=== PATIENT | female | born 1995 | race Two or more races ===

== ENCOUNTER 2025-04-09 17:19 | Inpatient (IN) ==
--- NOTE | 2025-04-09 18:55 | Emergency Department Note ---
Impression & Plan , Pyelonephritis ED Provider Note ED Provider Note NAME: FNU SUMI AGE:30 SEX: Female : 1995 ARRIVES VIA: private vehicle INFORMANT: Patient ED PROVIDER(s): Francy العلي DO CHIEF COMPLAINT: Flulike symptoms, HPI: This is a 30-year-old female who presents to the Emergency Department due to concern for recently flulike symptoms over the last 2 days. This is the patient's first . She is approximately 22 weeks gestation and has been following with Dr. Alejandro. She states she does have a history of high blood pressure and her nifedipine was recently increased. She denies any known sick contact. She began with a headache and body aches 2 days ago and intermittent fever. She began taking Tylenol and did contact her CHILI MAKER. Fevers do respond to Tylenol however they do recur. Office told her that if she was still having a fever that reached 101 degrees to go to the ER for further evaluation. She denies any recent vomiting or diarrhea but states she has been nauseated. No vaginal bleeding. No recent travel. PAST MEDICAL HISTORY:See Below PAST SURGICAL HISTORY:See Below FAMILY HISTORY:See Below SOCIAL HISTORY:See Below HOME MEDICATIONS:See Below ALLERGIES:See Below VITALS:See Below PHYSICAL EXAMINATION: GENERAL: alert, well appearing, well nourished, no distress, non-toxic EYE EXAM: normal conjunctiva, PERRL and EOM's grossly intact EARS: TM's clear b/l without erythema or effusion OROPHARYNX: no exudate, no erythema, lips, buccal mucosa, and tongue normal and mucous membranes are moist NECK: supple, no nuchal rigidity, no adenopathy, non-tender LUNGS: Clear to auscultation. Normal chest wall mechanics, no w/r/r HEART: no murmurs, S1 normal and S2 normal ABDOMEN: abdomen soft, non-tender, normo-active bowel sounds, no rebound or guarding. Gravid uterus palpable just above the umbilicus. SKIN: no rashes, petechiae, orbruising UPPER EXTREMITIES: upper extremities are grossly normal. FROM, nml pulses b/l. LOWER EXTREMITIES: No pitting edema. FROM, nml pulses b/l. NEURO EXAM: Normal sensorium, cranial nerves II-XII grossly intact, normal speech, no facial droop,nogross weakness of arms, no gross weakness of legs. Gross sensation intact. No ataxia. Vital Signs: reviewed and remarkable Differential Diagnosis: Viral syndrome, dehydration, SOLEDAD, preeclampsia, UTI, electrolyte abnormality, medication ADR, pyelonephritis, ureterolithiasis, cholecystitis, colitis, as well as others were considered MEDICAL DECISION MAKING: This is a 30-year-old female who is 22 weeks in her first presents to the emergency department due to 2 days of bodyaches, fevers, headache, and increased nausea. Patient has been using Tylenol with intermittent success. She does feel she is likely dehydrated today additionally. Labs are drawn and sent, IV established, urine collected at bedside and sent for analysis, EKG performed and interpreted by me. Patient was started on IV fluids and given IV Tylenol. Nasal swab obtained and sent for viral respiratory panel. Her heart rate did begin to improve. Urine ultimately found to be the likely source of infection. Patient given IV Rocephin and sent for renal ultrasound. Case discussed with on-call FLUE DUST LABORER via [place] text. Patient updated on results at bedside. Patient noted to have significant leukocytosis however procalcitonin negative. No evidence for SOLEDAD. I then reviewed prior urine cultures after patient mentioned 2 prior urinary tract infections during this . Patient did grow out an E.coli ESBL. After discussion with FLUE DUST LABORER regarding disposition, case was discussed with the hospitalist team. They prefer addition of Zosyn for antibiotics while awaiting urine culture. Patient was persistently tachycardic despite 2 L of fluid and third liter being slowed to maintenance. Patient reported feeling improved with no further headache or bodyaches and no longer feeling fevered. She states her nausea was improved additionally and she was able to tolerate sips by mouth. I do not suspect occult ureterolithiasis despite the appearance of nephrolithiasis on ultrasound. Patient with no focal abdominal, flank, or back pain. Consultation(s): 2245: DIscussed with Dr. Head, director of knowledge management via tiger text. [id number]: DIscucssed with Dr. Vidales, Id hospitalist team, for additional evaluation and mgmt. ER Treatment Provided: See below Diagnostics Interpreted By Me: -ECG: Sinus tachycardia at 109, normal axis, normal intervals, no acute ST/T wave changes -Cardiac Monitoring: An order was placed for continuous cardiac monitoring. The monitor shows a rate of 111 with sinus tachycardia rhythm. -Laboratory studies: As stated above and show below. -Imaging studies: US renal: nephrolithiasis noted, mild hydro Triage Nursing Note Reviewed Prior/Outside Records Reviewed Past Med/Surg History Problem List (Updated 04/10/25 @ 01:11 by Sinan Vidales MD) Hydronephrosis of right kidney UTI due to extended-spectrum beta lactamase (ESBL) producing Escherichia coli Pyelonephritis (Acute) (Acute) Hepatic steatosis Encounter for anatomic survey Hypothyroidism affecting Chronic hypertension affecting Early stage of Medical History Chicken pox Diarrhea Acid reflux Celiac disease Hypothyroid Pre-conception counseling Irregular menses Hypertension Desire for History of hypothyroidism Acid reflux History of kidney stones Borderline high cholesterol Borderline high blood pressure History of celiac disease (2019) Surgical History History of endoscopy History of colonoscopy Family History Denies family history of Ovarian cancer Breast cancer Colorectal cancer Social History Smoking Status: Never smoker Do You Dip or Chew Tobacco: No; Hx Alcohol Use: No Hx Substance Use: No Preferred Language: Uruguayan Communication Ability: Effective Respiratory Supervisor Required: No Beliefs That Will Affect Care: None marital status: marital status details: Jose Luis Rashid (38) Current Living Situation: Alone Current Living Situation Comment: apartment alone- in [place]. No pets. current occupational status: employed current occupation: Post-doc at [employer] Feels Safe at Home: Yes Assistive Devices: Glasses Allergies Allergies Allergy/AdvReac Type Severity Reaction Status Date / Time gluten Allergy Unknown celiac Verified 04/09/25 20:40 disease contact metal agent AdvReac Unknown "ARTIFICIAL Verified 04/10/25 00:04 JEWELRY" SPOTS ON SKIN Home Meds Home Medications Medication Instructions Recorded Confirmed aspirin 81 mg tablet,delayed 81 mg PO HS 04/09/25 04/09/25 release levothyroxine 75 mcg tablet 75 mcg PO DAILYBB 04/09/25 04/09/25 nifedipine 30 mg tablet,extended 60 mg PO HS 04/09/25 04/09/25 release 24 hr vit no.95-ferrous 1 tab PO HS 04/09/25 04/09/25 fumarate 28 mg-folic acid 800 mcg tablet () Previous Rx's Medication Instructions Recorded acetone (urine) test (Ketone Urine #50 ea 03/10/25 Test strips) blood sugar diagnostic (True #150 ea 03/10/25 Metrix Glucose Test Strip) blood-glucose meter (True Metrix #1 ea 03/10/25 Glucose Meter) lancets 28 gauge (TRUEplus Lancets) #150 ea 03/13/25 Results & Data (ED) Vital Signs Vital Signs - 24 hr 04/09/25 17:40 04/09/25 19:00 04/09/25 19:14 Temperature 37.9 C H Temperature Source Oral Pulse Rate 133 H 108 H Pulse Rate [Apical] 108 H Respiratory Rate 18 16 Respiratory Effort / Characteristics Non-Labored Respiratory Depth Normal Respiratory Pattern Regular Blood Pressure 153/92 H Blood Pressure [Right Arm] 132/87 Blood Pressure Mean 112 Blood Pressure Mean [Right Arm] 102 Pulse Oximetry 97 97 Oxygen Delivery Method Room Air Room Air Sepsis Recent Fever Within 48 Hours No Sepsis New/Unexplained Change in Mental Status N/A Sepsis Action Taken by Nursing No Action Required 04/09/25 19:30 04/09/25 20:00 04/09/25 21:00 Temperature 37 C Temperature Source Oral Pulse Rate Pulse Rate [Apical] 105 H 104 H 111 H Respiratory Rate 18 16 20 Respiratory Effort / Characteristics Respiratory Depth Respiratory Pattern Blood Pressure Blood Pressure [Right Arm] 143/85 H 125/83 115/83 Blood Pressure Mean Blood Pressure Mean [Right Arm] 104 97 93 Pulse Oximetry 97 95 98 Oxygen Delivery Method Room Air Room Air Room Air Sepsis Recent Fever Within 48 Hours Sepsis New/Unexplained Change in Mental Status Sepsis Action Taken by Nursing 04/09/25 23:18 04/10/25 02:01 Temperature Temperature Source Pulse Rate 107 H Pulse Rate [Apical] 113 H Respiratory Rate 18 Respiratory Effort / Characteristics Respiratory Depth Normal Respiratory Pattern Blood Pressure Blood Pressure [Right Arm] 129/87 Blood Pressure Mean Blood Pressure Mean [Right Arm] 101 Pulse Oximetry 96 Oxygen Delivery Method Room Air Sepsis Recent Fever Within 48 Hours Sepsis New/Unexplained Change in Mental Status Sepsis Action Taken by Nursing Laboratory Data 04/09/25 19:00 04/09/25 19:00 Lab Results 04/09/25 04/09/25 04/09/25 Range/Units 18:00 19:00 20:05 WBC 18.93 H (4.8-10.8) K/ul RBC 3.63 L (4.20-5.40) M/uL Hgb 10.6 L (12.0-16.0) g/dL Hct 31.2 L (37.0-47.0) % MCV 86.0 (80.0-100.0) fL MCH 29.2 (25.0-34.0) pg MCHC 34.0 (32.0-36.0) g/dL RDW Std Deviation 46.4 H (36.4-46.3) fL RDW Coeff of Guillermo 14.8 H (11.5-14.5) % Plt Count 272 (130-400) K/uL MPV 11.6 (9.4-12.4) fL Immature Gran % (Auto) 0.8 % Neut % (Auto) 76.3 % Lymph % (Auto) 14.4 % [place] % (Auto) 7.6 % Eos % (Auto) 0.6 % Baso % (Auto) 0.3 % Neut # (Auto) 14.44 H (1.40-6.50) K/uL Lymph # (Auto) 2.72 (1.20-3.40) K/uL [place] # (Auto) 1.44 H (0.11-0.59) K/uL Eos # (Auto) 0.12 (0.00-0.50) K/uL Baso # (Auto) 0.06 (0.00-0.20) K/uL Immature Gran # (Auto) 0.15 (0.01-0.20) K/uL PT 10.9 (9.0-12.0) Seconds INR 1.0 (0.9-1.1) Sodium 133 L (136-145) mmol/L Potassium 3.2 L (3.5-5.1) mmol/L Chloride 104 (98-107) mmol/L Carbon Dioxide 21 (21-32) mmol/L Anion Gap 8 (3-11) BUN 7 (6-23) mg/dl Creatinine 0.50 L (0.6-1.2) mg/dl Est Cr Clr Drug Dosing 132.0 ml/min eGFR 127.72 BUN/Creatinine Ratio 14.0 (10-20) Glucose 113 H (70-99(Fasting)) mg/dl Calcium 9.0 (8.6-10.3) mg/dl Total Bilirubin 0.2 (0.2-1.0) mg/dl AST 19 (13-39) U/L ALT 16 (7-52) U/L Alkaline Phosphatase 71 (34-104) U/L Total Protein 7.5 (6.0-8.3) gm/dl Albumin 3.3 L (3.4-5.0) gm/dl Globulin 4.2 H (2.5-4.0) gm/dl Albumin/Globulin Ratio 0.8 L (0.9-2) Procalcitonin 0.05 (0-0.5) ng/ml TSH 1.372 (0.300-4.500) uIu/ml Urine Color Yellow Urine Appearance Clear (Clear) Urine pH 7.5 (4.5-7.5) Ur Specific [place] 1.004 (1.000-1.030) Urine Protein Negative (Negative) Urine Glucose (UA) Negative (Negative) Urine Ketones Negative (Negative) Urine Blood 1+ H (Negative) Urine Nitrite Positive A (Negative) Urine Bilirubin Negative (Negative) Urine Urobilinogen Negative (Negative) Ur Leukocyte Esterase 2+ H (Negative) Urine WBC (Auto) 6-10 H (0-5) /hpf Urine RBC (Auto) 0-2 (0-2) /hpf U Hyaline Cast (Auto) 0-2 (0-2) /lpf U Epithel Cells (Auto) 0-2 (0-2) /hpf Urine Bacteria (Auto) 4+ H (None Seen) Urine Comment Adenovirus (PCR) Not Detected (NotDetected) B. pertussis DNA (PCR) Not Detected (NotDetected) B.parapertussis DNA PCR Not Detected (NotDetected) C. pneumoniae DNA (PCR) Not Detected (NotDetected) Coronavirus OC43 (PCR) Not Detected (NotDetected) Coronavirus HKU1 (PCR) Not Detected (NotDetected) Coronavirus 229E (PCR) Not Detected (NotDetected) SARS-CoV-2 (PCR) Not Detected (NotDetected) Coronavirus NL63 (PCR) Not Detected (NotDetected) Human Metapneumovir PCR Not Detected (NotDetected) Influenza Type A (PCR) Not Detected (NotDetected) Influenza Type B (PCR) Not Detected (NotDetected) M. pneumoniae (PCR) Not Detected (NotDetected) Parainfluenza 1 (PCR) Not Detected (NotDetected) Parainfluenza 2 (PCR) Not Detected (NotDetected) Parainfluenza 3 (PCR) Not Detected (NotDetected) Parainfluenza 4 (PCR) Not Detected (NotDetected) RSV (PCR) Not Detected (NotDetected) Entero/Rhino (PCR) Not Detected (NotDetected) Administered Medications Potassium Chloride/Sodium Chloride (Normal Saline W/20 Meq Kcl) 20 meq in 1,000 mls @ 100 mls/hr IV .Q10H ANGELICA Stop: 04/10/25 20:14 Last Admin: 04/10/25 01:20 Dose: 100 mls/hr Documented By: [email or web address] Discontinued Medications Sodium Chloride (Nss) 1,000 mls @ 999 mls/hr IV .Q1H1M ONE Stop: 04/09/25 19:43 Last Infusion: 04/09/25 19:55 Dose: Infused Documented By: zenobia Admin: 04/09/25 18:57 Dose: 999 mls/hr Documented By: zenobia Famotidine (Pepcid 20mg Iv Push) 20 mg in 5 mls @ 2.5 mls/min IV NOW STA Stop: 04/09/25 18:44 Last Admin: 04/09/25 18:57 Dose: 2.5 mls/min Documented By: zenobia Acetaminophen (Ofirmev) 1,000 mg in 100 mls @ 400 mls/hr IV NOW STA Stop: 04/09/25 18:57 Last Infusion: 04/09/25 19:54 Dose: Infused Documented By: zenobia Admin: 04/09/25 18:57 Dose: 400 mls/hr Documented By: zenobia Sodium Chloride (Nss) 1,000 mls @ 999 mls/hr IV .Q1H1M ONE Stop: 04/09/25 20:43 Last Infusion: 04/09/25 22:25 Dose: Infused Documented By: amg Admin: 04/09/25 20:04 Dose: 999 mls/hr Documented By: zenobia Ceftriaxone Sodium (Rocephin) 2,000 mg in 50 mls @ 100 mls/hr IV NOW STA Stop: 04/09/25 21:11 Last Infusion: 04/09/25 22:25 Dose: Infused Documented By: zenobia Admin: 04/09/25 21:36 Dose: 100 mls/hr Documented By: zenobia Sodium Chloride (Nss) 1,000 mls @ 125 mls/hr IV .Q8H ANGELICA Stop: 04/12/25 22:29 Last Admin: 04/10/25 00:43 Dose: Not Given Documented By: michelle Piperacillin Sod/Tazobactam Sod (Zosyn) 4.5 gm in 100 mls @ 200 mls/hr IV NOW ONE; Protocol Stop: 04/10/25 00:01 Last Infusion: 04/10/25 01:19 Dose: Infused Documented By: michelle Admin: 04/10/25 00:41 Dose: 200 mls/hr Documented By: michelle Potassium Chloride (Potassium Chloride Crtab 20 Meq Tabcr) 40 meq PO NOW STA Stop: 04/09/25 23:57 Last Admin: 04/10/25 00:41 Dose: 40 meq Documented By: michelle Imaging Data Radiologist's Impression: Renal Ultrasound 04/09/25 20:41 Exam(s): US RENAL EXAM: US Retroperitoneal Complete, Renal CLINICAL HISTORY: Reason for exam: UTI, , fevers. OTHER: Other Notes: UTI, fever. Pt is 22 weeks . Rt kidney: L=11.6cm. Mild hydronephrosis seen. No definite stones detected. Lt kidney: L=11.8cm. Slight dilatation of collecting system. .6cm ?stone in MP and .3cm ?stone in UP. A few other small echogenic areas throughout kidney. Bladder: Mild debris seen within, otherwise unremarkable. Jets not detected. heart [id number]. TECHNIQUE: Real-time complete ultrasound of the retroperitoneum with image documentation. COMPARISON: None FINDINGS: Right kidney: Mild right hydronephrosis. No stone identified. Right kidney measures 11.6 cm in length. Left kidney: Multiple left renal stones, measuring up to 6 mm. Minimal hydronephrosis. Left kidney measures 11.8 cm in length. Bladder: Small amount of debris in the bladder, nonspecific. Please correlate with urinalysis. Bilateral ureteral jets not seen on this exam. Other findings: Intrauterine noted with heart rate of 152 beats per minute. IMPRESSION: 1. Mild right hydronephrosis. No stone identified. 2. Multiple left renal stones, measuring up to 6 mm. Minimal hydronephrosis. 3. Small amount of debris in the bladder, nonspecific. Please correlate with urinalysis. 4. Intrauterine noted with heart rate of 152 beats per minute. Electronically signed by: Lonny Brito M.D. 04/09/25 22:23 PM Discharge Plan Visit Data Chief Complaint: Flu Like Symptoms Stated Complaint: 22 WKS, FEVR, CHILLS, SORE THROAT ED Provider: Francy العلي Discharge Problem: , Pyelonephritis Patient Disposition: Being Evaluated by Hospitalist Condition: Fair
[2025-04-09] MEDS: FAMOTIDINE 20MG IV PUSH 20 MG/5 ML SYR IV STA (18:57)
[2025-04-09] MEDS: ACETAMINOPHEN 1,000 MG/100 ML VIAL IV STA (18:57)
[2025-04-09] MEDS: SODIUM CHLORIDE 0.9% 1,000 ML IV ONE ×2 (18:57→20:04)
[2025-04-09 19:15] LABS: Hematocrit (blood only) 31.2 % (37.0-47.0); Hemoglobin 10.6 g/dL (12.0-16.0); Immature Granulocytes # (auto) 0.15 K/uL (0.01-0.20); Immature Granulocytes % (auto) 0.8 %; Mean Corpuscular Hemoglobin 29.2 pg (25.0-34.0); Mean Corpuscular Volume 86.0 fL (80.0-100.0); Platelet Count 272 K/uL (130-400); RDW Standard Deviation 46.4 fL (36.4-46.3); Red Blood Count 3.63 M/uL (4.20-5.40); White Blood Count 18.93 K/ul (4.8-10.8)
[2025-04-09 19:16] LABS: Chlamydia pneumoniae PCR Not Detected (NotDetected); Coronavirus 229E PCR Not Detected (NotDetected); Coronavirus CoV-2 (COVID19)PCR Not Detected (NotDetected); Coronavirus HKU1 PCR Not Detected (NotDetected); Coronavirus NL63 PCR Not Detected (NotDetected); Coronavirus OC43PCR Not Detected (NotDetected); Human Metapneumovirus PCR Not Detected (NotDetected); Parainfluenza Virus 1 PCR Not Detected (NotDetected); Parainfluenza Virus 2 PCR Not Detected (NotDetected); Parainfluenza Virus 3 PCR Not Detected (NotDetected); Parainfluenza Virus 4 PCR Not Detected (NotDetected); Respiratory Syncytial VirusPCR Not Detected (NotDetected); Rhinovirus/Enterovirus PCR Not Detected (NotDetected)
[2025-04-09 19:32] LABS: Alanine Aminotransferase 16.0 U/L (7-52); Albumin Globulin Ratio 0.8 (0.9-2); Albumin Level 3.3 gm/dl (3.4-5.0); Alkaline Phosphatase 71.0 U/L (34-104); Anion Gap 8.0 (3-11); Bilirubin,Total 0.2 mg/dl (0.2-1.0); Blood Urea Nitrogen 7.0 mg/dl (6-23); Calcium 9.0 mg/dl (8.6-10.3); Carbon Dioxide 21.0 mmol/L (21-32); Chloride 104.0 mmol/L (98-107); Creatinine Clr Calc Pharmacy 132.0 ml/min; Globulin 4.2 gm/dl (2.5-4.0); Glucose 113.0 mg/dl (70-99(Fasting)); Potassium 3.2 mmol/L (3.5-5.1); Sodium 133.0 mmol/L (136-145); Total Protein 7.5 gm/dl (6.0-8.3)
[2025-04-09 19:42] LABS: INR 1.0 (0.9-1.1); Prothrombin Time 10.9 Seconds (9.0-12.0)
[2025-04-09 20:30] LABS: Appearance Urine Clear (Clear); Bacteria Urine Automated 4+ (None Seen); Cast Urine Automated 0-2 /lpf (0-2); Epithelial Cell Urine Auto 0-2 /hpf (0-2); Glucose Urine UA Negative (Negative); RBC Urine Automated 0-2 /hpf (0-2)
[2025-04-09] MEDS: cefTRIAXone SODIUM 2,000 MG/50 ML BAG IV STA (21:36)
--- NOTE | 2025-04-09 22:24 | Ultrasound Report ---
Exam(s): US RENAL EXAM: US Retroperitoneal Complete, Renal CLINICAL HISTORY: Reason for exam: UTI, , fevers. OTHER: Other Notes: UTI, fever. Pt is 22 weeks . Rt kidney: L=11.6cm. Mild hydronephrosis seen. No definite stones detected. Lt kidney: L=11.8cm. Slight dilatation of collecting system. .6cm ?stone in MP and .3cm ?stone in UP. A few other small echogenic areas throughout kidney. Bladder: Mild debris seen within, otherwise unremarkable. Jets not detected. heart [id number]. TECHNIQUE: Real-time complete ultrasound of the retroperitoneum with image documentation. COMPARISON: None FINDINGS: Right kidney: Mild right hydronephrosis. No stone identified. Right kidney measures 11.6 cm in length. Left kidney: Multiple left renal stones, measuring up to 6 mm. Minimal hydronephrosis. Left kidney measures 11.8 cm in length. Bladder: Small amount of debris in the bladder, nonspecific. Please correlate with urinalysis. Bilateral ureteral jets not seen on this exam. Other findings: Intrauterine noted with heart rate of 152 beats per minute. IMPRESSION: 1. Mild right hydronephrosis. No stone identified. 2. Multiple left renal stones, measuring up to 6 mm. Minimal hydronephrosis. 3. Small amount of debris in the bladder, nonspecific. Please correlate with urinalysis. 4. Intrauterine noted with heart rate of 152 beats per minute. Electronically signed by: Lonny Brito M.D. 04/09/25 22:23 PM
--- NOTE | 2025-04-10 00:12 | History & Physical Report ---
Date of Service April 10, 2025 Assessment & Plan (1) UTI due to extended-spectrum beta lactamase (ESBL) producing Escherichia coli: (2) Pyelonephritis: (3) : (4) Hydronephrosis of right kidney: Plan The patient is a 30-year-old female with a past medical history including hepatic steatosis, hypothyroidism, hypertension, and ESBL E. coli UTI x 2. She presents to the emergency department with 2 days of fatigue, nausea, generalized weakness. She is presently 22 weeks gestation with her first . She reports that her dosing of nifedipine was increased from 30 to 60 mg recently. She reports that she was also told to take aspirin at bedtime cut back on strain . Her symptoms began with generalized bodyaches and headache 2 days ago, and since then has developed more progressive fatigue. Tylenol is only minimally improving her symptoms, she called her OB doctor, who advised she come to the ED for assessment after reporting temperature of 101 F. In the emergency department she had laboratory performed showing potassium 3.2, platelets 113, sodium 133, albumin 3.3, negative BioFire testing, and urinalysis suggestive of urinary tract infection. CT scan of abdomen pelvis showed mild right hydronephrosis, left renal stone, bladder debris, and intrauterine heart heart rate 152. In the ED she received the following: Normal saline 1 L fluid bolus and 2, then maintenance at 125 mL/h, famotidine 20 mg IV, Tylenol 1 g IV, and ceftriaxone 2 g IV. She was then referred for evaluation for admission to the hospitalist service. Right-sided pyelonephritis/history of ESBL E. coli UTI/cystitis- Admit to PCU Renal [id number] pyelonephritis, cystitis, left renal stones. Follow urine culture and sensitivity Stop ceftriaxone given in the ED, changed to Zosyn 4.5 g IV Zosyn 4.5 g IV every 8 hours Acetaminophen 650 mg every 6 hours as needed for pain Patient had infection of ESBL E. coli 01/06/2025, and on 02/24/2025. Question is whether the first infection actually cleared, or if there is actually 2 separate infections. Patient will need to get a follow-up urine culture and sensitivity after completion of treatment this time, to verify clearance of infection. Status post 2 L normal saline bolus in the ED. Change IV fluid as below. Hypokalemia/hyponatremia- Potassium 3.2 and sodium 133 Status post 2 L normal saline bolus in the ED Give Klor-Con 40 mEq p.o. x 1 Change IV fluids to normal saline plus KCl 20 mEq at 100 mL/h to 2 L Repeat laboratories in a.m. Sinus tachycardia/hypertension- Multifactorial, with contributing factors including but not limited to: Dehydration, hypokalemia, recently increased dose of nifedipine, and UTI. Hold nifedipine, reportedly increased from 30 to 60 mg. If bp increases, start labetalol 100 mg p.o. twice daily, and titrate as needed. Intrauterine 22 weeks gestation- heart rate noted to be 152 on renal ultrasound Consulted OB and will monitor Hypothyroidism- Continue current dosing of levothyroxine, TSH in good range. GI prophylaxis- Famotidine 20 mg IV every 12 hours History of Present Illness Primary Care Provider: Melissa Beck MD The patient is a 30-year-old female with a past medical history including hepatic steatosis, hypothyroidism, hypertension, and ESBL E. coli UTI x 2. She presents to the emergency department with 2 days of fatigue, nausea, generalized weakness. She is presently 22 weeks gestation with her first . She reports that her dosing of nifedipine was increased from 30 to 60 mg recently. She reports that she was also told to take aspirin at bedtime cut back on strain . Her symptoms began with generalized bodyaches and headache 2 days ago, and since then has developed more progressive fatigue. Tylenol is only minimally improving her symptoms, she called her OB doctor, who advised she come to the ED for assessment after reporting temperature of 101 F. In the emergency department she had laboratory performed showing potassium 3.2, platelets 113, sodium 133, albumin 3.3, negative BioFire testing, and urinalysis suggestive of urinary tract infection. CT scan of abdomen pelvis showed mild right hydronephrosis, left renal stone, bladder debris, and intrauterine heart heart rate 152. In the ED she received the following: Normal saline 1 L fluid bolus and 2, then maintenance at 125 mL/h, famotidine 20 mg IV, Tylenol 1 g IV, and ceftriaxone 2 g IV. She was then referred for evaluation for admission to the hospitalist service. Allergies Allergy/AdvReac Type Severity Reaction Status Date / Time gluten Allergy Unknown celiac Verified 04/09/25 20:40 disease contact metal agent AdvReac Unknown "ARTIFICIAL Verified 04/10/25 00:04 JEWELRY" SPOTS ON SKIN Home Medications Medication Instructions Recorded Confirmed Type acetone (urine) test (Ketone Urine #50 ea 03/10/25 04/09/25 Rx Test strips) blood sugar diagnostic (True #150 ea 03/10/25 04/09/25 Rx Metrix Glucose Test Strip) blood-glucose meter (True Metrix #1 ea 03/10/25 04/09/25 Rx Glucose Meter) lancets 28 gauge (TRUEplus Lancets) #150 ea 03/13/25 04/09/25 Rx aspirin 81 mg tablet,delayed 81 mg PO HS 04/09/25 04/09/25 History release levothyroxine 75 mcg tablet 75 mcg PO DAILYBB 04/09/25 04/09/25 History nifedipine 30 mg tablet,extended 60 mg PO HS 04/09/25 04/09/25 History release 24 hr vit no.95-ferrous 1 tab PO HS 04/09/25 04/09/25 History fumarate 28 mg-folic acid 800 mcg tablet () Past Med/Surg History Problem List (Updated 04/10/25 @ 01:11 by Sinan Vidales MD) Hydronephrosis of right kidney UTI due to extended-spectrum beta lactamase (ESBL) producing Escherichia coli Pyelonephritis (Acute) (Acute) Hepatic steatosis Encounter for anatomic survey Hypothyroidism affecting Chronic hypertension affecting Early stage of Medical History Chicken pox Diarrhea Acid reflux Celiac disease Hypothyroid Pre-conception counseling Irregular menses Hypertension Desire for History of hypothyroidism Acid reflux History of kidney stones Borderline high cholesterol Borderline high blood pressure History of celiac disease (2019) Surgical History History of endoscopy History of colonoscopy Family History Denies family history of Ovarian cancer Breast cancer Colorectal cancer Social History Smoking Status: Never smoker Do You Dip or Chew Tobacco: No; Hx Alcohol Use: No Hx Substance Use: No Preferred Language: Lithuanian Communication Ability: Effective Paint Mixer Required: No Beliefs That Will Affect Care: None marital status: marital status details: Jose Luis Rashid (36) Current Living Situation: Alone Current Living Situation Comment: apartment alone- in [place]. No pets. current occupational status: employed current occupation: Post-doc at [employer] Feels Safe at Home: Yes Assistive Devices: Glasses Review of Systems Review of Systems: The patient denies chest pain, palpitations, shortness of breath, dyspnea on exertion, cough, lower extremity swelling, sore throat, fevers, chills, sweats, nausea, vomiting, diarrhea , constipation, abdominal pain, pelvic pain, blood in urine or stool, dysuria, urinary frequency or urgency, lightheadedness, dizziness, headache, memory loss, loss of consciousness, rash, abnormal bruising or bleeding, imbalance, focal weakness, numbness or tingling in arms or legs, generalized arthralgias or myalgias, back or neck pain, or night sweats. The review of systems is otherwise negative other than for that already noted above, and at least 10 systems have been reviewed. Physical Exam Physical Exam: The patient is awake, alert and oriented 3, well developed and well nourished, normocephalic and atraumatic, lying in bed and in no acute distress. HEENT--PERRL, EOMI, mucous membranes and oropharynx mildly dry. Neck--supple. No JVD. No bruits. Thyroid normal, trachea midline, no ad enopathy. Heart--tachycardic and regular. No murmurs, rubs or gallops. Lungs--clear bilaterally, no respiratory distress, no accessory muscle use. Abdomen--normal bowel sounds and soft. Nontender. Nondistended, no hernias or masses, no organomegaly. 22 gestation uterus. Extremities--no cyanosis or clubbing. No edema. There are good distal pulses b/l. Dermatologic--normal skin turgor, normal color, no abnormal lymph nodes, no rash. Neurologic--cranial nerves II through XII grossly intact. Rheumatologic--normal range of motion. Psychiatric--normal affect. Results & Data Results & Data Vital Signs (Past 12 Hours) Vital Signs Temp Pulse Pulse Resp BP BP Pulse Ox 04/09/25 23:18 107 H 04/09/25 21:00 111 H 20 115/83 98 04/09/25 20:00 37 C 104 H 16 125/83 95 04/09/25 19:30 105 H 18 143/85 H 97 04/09/25 19:14 108 H 04/09/25 19:00 108 H 16 132/87 97 04/09/25 17:40 37.9 C H 133 H 18 153/92 H 97 O2 Del Method 04/09/25 23:18 04/09/25 21:00 Room Air 04/09/25 20:00 Room Air 04/09/25 19:30 Room Air 04/09/25 19:14 04/09/25 19:00 Room Air 04/09/25 17:40 Room Air Laboratory Results Laboratory Results WBC 18.93 K/ul (4.8-10.8) H 04/09/25 19:00 RBC 3.63 M/uL (4.20-5.40) L 04/09/25 19:00 Hgb 10.6 g/dL (12.0-16.0) L 04/09/25 19:00 Hct 31.2 % (37.0-47.0) L 04/09/25 19:00 MCV 86.0 fL (80.0-100.0) 04/09/25 19:00 MCH 29.2 pg (25.0-34.0) 04/09/25 19:00 MCHC 34.0 g/dL (32.0-36.0) 04/09/25 19:00 RDW Std Deviation 46.4 fL (36.4-46.3) H 04/09/25 19:00 RDW Coeff of Guillermo 14.8 % (11.5-14.5) H 04/09/25 19:00 Plt Count 272 K/uL (130-400) 04/09/25 19:00 MPV 11.6 fL (9.4-12.4) 04/09/25 19:00 Immature Gran % (Auto) 0.8 % 04/09/25 19:00 Neut % (Auto) 76.3 % 04/09/25 19:00 Lymph % (Auto) 14.4 % 04/09/25 19:00 [place] % (Auto) 7.6 % 04/09/25 19:00 Eos % (Auto) 0.6 % 04/09/25 19:00 Baso % (Auto) 0.3 % 04/09/25 19:00 Neut # (Auto) 14.44 K/uL (1.40-6.50) H 04/09/25 19:00 Lymph # (Auto) 2.72 K/uL (1.20-3.40) 04/09/25 19:00 [place] # (Auto) 1.44 K/uL (0.11-0.59) H 04/09/25 19:00 Eos # (Auto) 0.12 K/uL (0.00-0.50) 04/09/25 19:00 Baso # (Auto) 0.06 K/uL (0.00-0.20) 04/09/25 19:00 Immature Gran # (Auto) 0.15 K/uL (0.01-0.20) 04/09/25 19:00 PT 10.9 Seconds (9.0-12.0) 04/09/25 19:00 INR 1.0 (0.9-1.1) 04/09/25 19:00 Sodium 133 mmol/L (136-145) L 04/09/25 19:00 Potassium 3.2 mmol/L (3.5-5.1) L 04/09/25 19:00 Chloride 104 mmol/L (98-107) 04/09/25 19:00 Carbon Dioxide 21 mmol/L (21-32) 04/09/25 19:00 Anion Gap 8 (3-11) 04/09/25 19:00 BUN 7 mg/dl (6-23) 04/09/25 19:00 Creatinine 0.50 mg/dl (0.6-1.2) L 04/09/25 19:00 Est Cr Clr Drug Dosing 132.0 ml/min 04/09/25 19:00 eGFR 127.72 04/09/25 19:00 BUN/Creatinine Ratio 14.0 (10-20) 04/09/25 19:00 Glucose 113 mg/dl (70-99(Fasting)) H 04/09/25 19:00 Calcium 9.0 mg/dl (8.6-10.3) 04/09/25 19:00 Total Bilirubin 0.2 mg/dl (0.2-1.0) 04/09/25 19:00 AST 19 U/L (13-39) 04/09/25 19:00 ALT 16 U/L (7-52) 04/09/25 19:00 Alkaline Phosphatase 71 U/L (34-104) 04/09/25 19:00 Total Protein 7.5 gm/dl (6.0-8.3) 04/09/25 19:00 Albumin 3.3 gm/dl (3.4-5.0) L 04/09/25 19:00 Globulin 4.2 gm/dl (2.5-4.0) H 04/09/25 19:00 Albumin/Globulin Ratio 0.8 (0.9-2) L 04/09/25 19:00 Procalcitonin 0.05 ng/ml (0-0.5) 04/09/25 19: TSH 1.372 uIu/ml (0.300-4.500) 04/09/25 19:00 Urine Color Yellow 04/09/25 20:05 Urine Appearance Clear (Clear) 04/09/25 20: Urine pH 7.5 (4.5-7.5) 04/09/25 20:05 Ur Specific [place] 1.004 (1.000-1.030) 04/09/25 20:05 Urine Protein Negative (Negative) 04/09/25 20:05 Urine Glucose (UA) Negative (Negative) 04/09/25 20: Urine Ketones Negative (Negative) 04/09/25 20:05 Urine Blood 1+ (Negative) H 04/09/25 20:05 Urine Nitrite Positive (Negative) A 04/09/25 20: Urine Bilirubin Negative (Negative) 04/09/25 20: Urine Urobilinogen Negative (Negative) 04/09/25 20:05 Ur Leukocyte Esterase 2+ (Negative) H 04/09/25 20:05 Urine WBC (Auto) 6-10 /hpf (0-5) H 04/09/25 20:05 Urine RBC (Auto) 0-2 /hpf (0-2) 04/09/25 20:05 U Hyaline Cast (Auto) 0-2 /lpf (0-2) 04/09/25 20:05 U Epithel Cells (Auto) 0-2 /hpf (0-2) 04/09/25 20:05 Urine Bacteria (Auto) 4+ (None Seen) H 04/09/25 20:05 Urine Comment 04/09/25 20:05 Adenovirus (PCR) Not Detected (NotDetected) 04/09/25 18:00 B. pertussis DNA (PCR) Not Detected (NotDetected) 04/09/25 18:00 B.parapertussis DNA PCR Not Detected (NotDetected) 04/09/25 18:00 C. pneumoniae DNA (PCR) Not Detected (NotDetected) 04/09/25 18:00 Coronavirus OC43 (PCR) Not Detected (NotDetected) 04/09/25 18:00 Coronavirus HKU1 (PCR) Not Detected (NotDetected) 04/09/25 18:00 Coronavirus 229E (PCR) Not Detected (NotDetected) 04/09/25 18:00 SARS-CoV-2 (PCR) Not Detected (NotDetected) 04/09/25 18:00 Coronavirus NL63 (PCR) Not Detected (NotDetected) 04/09/25 18:00 Human Metapneumovir PCR Not Detected (NotDetected) 04/09/25 18:00 Influenza Type A (PCR) Not Detected (NotDetected) 04/09/25 18:00 Influenza Type B (PCR) Not Detected (NotDetected) 04/09/25 18:00 M. pneumoniae (PCR) Not Detected (NotDetected) 04/09/25 18:00 Parainfluenza 1 (PCR) Not Detected (NotDetected) 04/09/25 18:00 Parainfluenza 2 (PCR) Not Detected (NotDetected) 04/09/25 18:00 Parainfluenza 3 (PCR) Not Detected (NotDetected) 04/09/25 18:00 Parainfluenza 4 (PCR) Not Detected (NotDetected) 04/09/25 18:00 RSV (PCR) Not Detected (NotDetected) 04/09/25 18:00 Entero/Rhino (PCR) Not Detected (NotDetected) 04/09/25 18:00 Impressions Renal Ultrasound 04/09/25 20:41 Exam(s): US RENAL EXAM: US Retroperitoneal Complete, Renal CLINICAL HISTORY: Reason for exam: UTI, , fevers. OTHER: Other Notes: UTI, fever. Pt is 22 weeks . Rt kidney: L=11.6cm. Mild hydronephrosis seen. No definite stones detected. Lt kidney: L=11.8cm. Slight dilatation of collecting system. .6cm ?stone in MP and .3cm ?stone in UP. A few other small echogenic areas throughout kidney. Bladder: Mild debris seen within, otherwise unremarkable. Jets not detected. heart [id number]=[id number]. TECHNIQUE: Real-time complete ultrasound of the retroperitoneum with image documentation. COMPARISON: None FINDINGS: Right kidney: Mild right hydronephrosis. No stone identified. Right kidney measures 11.6 cm in length. Left kidney: Multiple left renal stones, measuring up to 6 mm. Minimal hydronephrosis. Left kidney measures 11.8 cm in length. Bladder: Small amount of debris in the bladder, nonspecific. Please correlate with urinalysis. Bilateral ureteral jets not seen on this exam. Other findings: Intrauterine noted with heart rate of 152 beats per minute. IMPRESSION: 1. Mild right hydronephrosis. No stone identified. 2. Multiple left renal stones, measuring up to 6 mm. Minimal hydronephrosis. 3. Small amount of debris in the bladder, nonspecific. Please correlate with urinalysis. 4. Intrauterine noted with heart rate of 152 beats per minute. Electronically signed by: Lonny Brito M.D. 04/09/25 22:23 PM Code Status & VTE Plan Code Status Full code PG Care Time/CCT Total # of Minutes Spent Total Time Spent with Patient: Total time spent is greater than 50% in coordination of care (as documented) at patient's floor/unit and/or counseling patient: Coding Level of Care Code 30001 INT INP/OBS CARE 3/75MIN Diagnoses UTI due to extended-spectrum beta lactamase (ESBL) producing Escherichia coli N39.0; B96.29; Z16.12 Pyelonephritis N12 Z34.90 Hydronephrosis of right kidney N13.30
[2025-04-10] MEDS: POTASSIUM CHLORIDE CRTAB 20 MEQ TABCR PO STA (00:41)
[2025-04-10] MEDS: PIPERACILLIN/TAZOBACTAM 4.5 GM/100 ML BAG IV ONE (00:41)
[2025-04-10] MEDS: SODIUM CHLORIDE 0.9% 1,000 ML IV SCH (00:43)
[2025-04-10 00:49] LABS: Thyroid Stimulating Hormone 1.372 uIu/ml (0.300-4.500)
[2025-04-10] MEDS: NSS + 20MEQ KCL 20 MEQ/1,000 ML BAG IV SCH (01:20)
[2025-04-10] MEDS: ACETAMINOPHEN 325 MG TAB PO PRN (04:07)
[2025-04-10] MEDS: LEVOTHYROXINE SODIUM 75 MCG TABLET PO SCH (06:00)
[2025-04-10] MEDS: PIPERACILLIN/TAZOBACTAM 4.5 GM/100 ML BAG IV SCH (06:00)
[2025-04-10 06:23] LABS: Hematocrit (blood only) 29.3 % (37.0-47.0); Hemoglobin 9.9 g/dL (12.0-16.0); Immature Granulocytes # (auto) 0.16 K/uL (0.01-0.20); Immature Granulocytes % (auto) 0.9 %; Mean Corpuscular Hemoglobin 29.3 pg (25.0-34.0); Mean Corpuscular Volume 86.7 fL (80.0-100.0); Platelet Count 245 K/uL (130-400); RDW Standard Deviation 46.9 fL (36.4-46.3); Red Blood Count 3.38 M/uL (4.20-5.40); White Blood Count 17.48 K/ul (4.8-10.8)
[2025-04-10 06:43] LABS: Alanine Aminotransferase 15.0 U/L (7-52); Albumin Globulin Ratio 0.9 (0.9-2); Albumin Level 3.1 gm/dl (3.4-5.0); Alkaline Phosphatase 63.0 U/L (34-104); Anion Gap 6.0 (3-11); Bilirubin,Total 0.2 mg/dl (0.2-1.0); Blood Urea Nitrogen 5.0 mg/dl (6-23); Calcium 8.2 mg/dl (8.6-10.3); Carbon Dioxide 21.0 mmol/L (21-32); Chloride 108.0 mmol/L (98-107); Creatinine Clr Calc Pharmacy 137.2 ml/min; Globulin 3.4 gm/dl (2.5-4.0); Glucose 94.0 mg/dl (70-99(Fasting)); Potassium 3.5 mmol/L (3.5-5.1); Sodium 135.0 mmol/L (136-145); Total Protein 6.5 gm/dl (6.0-8.3)
--- NOTE | 2025-04-10 07:38 | OB/GYN Consultation ---
Date of Consultation April 10, 2025 Assessment & Plan (1) Pyelonephritis: (2) UTI due to extended-spectrum beta lactamase (ESBL) producing Escherichia coli: (3) 22 weeks gestation of : Plan Patient is a 30yo patient who is a with at 22w3d admitted to hospitalist service - currently in MICU- for findings concerning for pyelonephritis in setting of recurrent E Coli UTIs. UA with nitirites; awaiting urine culture and sensitivity results Switched from typical ceftriaxone to Zosyn per primary team; can tailor antibiotics once culture results (last two urine cultures were noted resistant to ceftriaxone so agree with this choice) Pt is going to need daily suppressive therapy moving forward for remainder of the due to recurrent UTIs Acetaminophen as needed for pain Continue IVF WBC trended slightly down from 18 to 17, continue to monitor for improvement Recommend daily doppler tones for reassurance-L&D aware of patient Recommend continuous pulse ox due to in setting of pyelonephritis due to risk of ARDS; goal >95% BP noted mild range in setting of chronic hypertension; primary team holding home nifedipine; goal in is BP <140/90, can trial labetalol if different medication needed Continue PNV, baby ASA; consider daily iron supplement for anemia with hgb noted 9.9 OB will continue to follow and be available for questions History of Present Illness Reason for Consultation: 22 week Attending Physician: Sinan Vidales MD History of Present Illness Patient is a 30yo patient who is a with at 22w3d who presented to the ER overnight after several days of headache, body aches, fever and nausea. Urine in ED positive for nitrites suspicious for recurrent urinary tract infection. Found to also have elevated white count, tachycardia, CT scan of abdomen pelvis showed mild right hydronephrosis, left renal stone, bladder debris. She was given IV fluids and ceftriaxone. Given concern for pyelonephritis in , admitted to hospitalist service for further management. complicated by hypothyroidism, chronic hypertension on meds (60XR procardia) , and GDM diagnosed with 16w GCT. She has also had multiple E Coli UTIs in this . OB complaints-none at this time - feeling + movement; denies vaginal bleeing, leaking of fluid, or contractions. This morning, she reports feeling better compared to yesterday. Denies flank pain or urinary symptoms at this time. Took tylenol this morning. Allergies Allergy/AdvReac Type Severity Reaction Status Date / Time gluten Allergy Unknown celiac Verified 04/09/25 20:40 disease contact metal agent AdvReac Unknown "ARTIFICIAL Verified 04/10/25 00:04 JEWELRY" SPOTS ON SKIN Home Medications Medication Instructions Recorded Confirmed Type acetone (urine) test (Ketone Urine #50 ea 03/10/25 04/09/25 Rx Test strips) blood sugar diagnostic (True #150 ea 03/10/25 04/09/25 Rx Metrix Glucose Test Strip) blood-glucose meter (True Metrix #1 ea 03/10/25 04/09/25 Rx Glucose Meter) lancets 28 gauge (TRUEplus Lancets) #150 ea 03/13/25 04/09/25 Rx aspirin 81 mg tablet,delayed 81 mg PO HS 04/09/25 04/09/25 History release levothyroxine 75 mcg tablet 75 mcg PO DAILYBB 04/09/25 04/09/25 History nifedipine 30 mg tablet,extended 60 mg PO HS 04/09/25 04/09/25 History release 24 hr vit no.95-ferrous 1 tab PO HS 04/09/25 04/09/25 History fumarate 28 mg-folic acid 800 mcg tablet () Patient History Medical History Chicken pox Diarrhea Acid reflux Celiac disease Hypothyroid Pre-conception counseling Irregular menses Hypertension Desire for History of hypothyroidism Acid reflux History of kidney stones Borderline high cholesterol Borderline high blood pressure History of celiac disease (2019) Surgical History History of endoscopy History of colonoscopy Family History Denies family history of Ovarian cancer Breast cancer Colorectal cancer Social History Smoking Status: Unknown if ever smoked Do You Dip or Chew Tobacco: No; Hx Alcohol Use: No Hx Substance Use: No Preferred Language: Yoruba Communication Ability: Effective Creative Arts Music Therapist Required: No Beliefs That Will Affect Care: None marital status: marital status details: Jose Luis Rashid (38) Current Living Situation: Alone Current Living Situation Comment: apartment alone- in [place]. No pets. current occupational status: employed current occupation: Post-doc at [employer] Other Information That Helps Us Care for You: No Feels Safe at Home: Yes Safety Concerns: Feels Safe At This Time Assistive Devices: Glasses Review of Systems Review of Systems: All systems reviewed & are unremarkable except as noted in HPI & below Physical Exam Constitutional: WD/WN, vitals as above healthy appearing Respiratory: normal respiratory effort Gastrointestinal (Abdomen): Gravid, non-tender Psychiatric: Orientation: alert and oriented x 3 Results & Data Vital Signs (Past 12 Hours) Vital Signs Temp Pulse Pulse Resp BP Pulse Ox O2 Del Method 04/10/25 02:30 107 H 04/10/25 02:30 36.8 C 113 H 16 143/93 H 98 Room Air 04/10/25 02:29 18 96 04/10/25 02:01 113 H 18 129/87 96 Room Air 04/09/25 23:18 107 H 04/09/25 21:00 111 H 20 115/83 98 Room Air 04/09/25 20:00 37 C 104 H 16 125/83 95 Room Air Diagnostic Findings Laboratory Results WBC 17.48 K/ul (4.8-10.8) H 04/10/25 06:07 RBC 3.38 M/uL (4.20-5.40) L 04/10/25 06:07 Hgb 9.9 g/dL (12.0-16.0) L 04/10/25 06:07 Hct 29.3 % (37.0-47.0) L 04/10/25 06:07 MCV 86.7 fL (80.0-100.0) 04/10/25 06:07 MCH 29.3 pg (25.0-34.0) 04/10/25 06:07 MCHC 33.8 g/dL (32.0-36.0) 04/10/25 06:07 RDW Std Deviation 46.9 fL (36.4-46.3) H 04/10/25 06:07 RDW Coeff of Guillermo 14.9 % (11.5-14.5) H 04/10/25 06:07 Plt Count 245 K/uL (130-400) 04/10/25 06:07 MPV 11.3 fL (9.4-12.4) 04/10/25 06:07 Immature Gran % (Auto) 0.9 % 04/10/25 06:07 Neut % (Auto) 74.1 % 04/10/25 06:07 Lymph % (Auto) 15.4 % 04/10/25 06:07 [place] % (Auto) 8.0 % 04/10/25 06:07 Eos % (Auto) 1.1 % 04/10/25 06:07 Baso % (Auto) 0.5 % 04/10/25 06:07 Neut # (Auto) 12.95 K/uL (1.40-6.50) H 04/10/25 06:07 Lymph # (Auto) 2.70 K/uL (1.20-3.40) 04/10/25 06:07 [place] # (Auto) 1.39 K/uL (0.11-0.59) H 04/10/25 06:07 Eos # (Auto) 0.20 K/uL (0.00-0.50) 04/10/25 06:07 Baso # (Auto) 0.08 K/uL (0.00-0.20) 04/10/25 06:07 Immature Gran # (Auto) 0.16 K/uL (0.01-0.20) 04/10/25 06:07 PT 10.9 Seconds (9.0-12.0) 04/09/25 19:00 INR 1.0 (0.9-1.1) 04/09/25 19:00 Sodium 135 mmol/L (136-145) L 04/10/25 06:07 Potassium 3.5 mmol/L (3.5-5.1) 04/10/25 06:07 Chloride 108 mmol/L (98-107) H 04/10/25 06:07 Carbon Dioxide 21 mmol/L (21-32) 04/10/25 06:07 Anion Gap 6 (3-11) 04/10/25 06:07 BUN 5 mg/dl (6-23) L 04/10/25 06:07 Creatinine 0.48 mg/dl (0.6-1.2) L 04/10/25 06:07 Est Cr Clr Drug Dosing 137.2 ml/min 04/10/25 06:07 eGFR 128.98 12/11/25 06:07 BUN/Creatinine Ratio 10.4 (10-20) 04/10/25 06:07 Glucose 94 mg/dl (70-99(Fasting)) 04/10/25 06:07 POC Glucose 100 mg/dl (70-99) H 04/10/25 07:37 Calcium 8.2 mg/dl (8.6-10.3) L 04/10/25 06:07 Total Bilirubin 0.2 mg/dl (0.2-1.0) 04/10/25 06:07 AST 19 U/L (13-39) 04/10/25 06:07 ALT 15 U/L (7-52) 04/10/25 06:07 Alkaline Phosphatase 63 U/L (34-104) 04/10/25 06:07 Total Protein 6.5 gm/dl (6.0-8.3) 04/10/25 06:07 Albumin 3.1 gm/dl (3.4-5.0) L 04/10/25 06:07 Globulin 3.4 gm/dl (2.5-4.0) 04/10/25 06:07 Albumin/Globulin Ratio 0.9 (0.9-2) 04/10/25 06:07 Procalcitonin 0.05 ng/ml (0-0.5) 04/09/25 19:00 TSH 1.372 uIu/ml (0.300-4.500) 04/09/25 19:00 Urine Color Yellow 04/09/25 20:05 Urine Appearance Clear (Clear) 04/09/25 20:05 Urine pH 7.5 (4.5-7.5) 04/09/25 20:05 Ur Specific [place] 1.004 (1.000-1.030) 04/09/25 20:05 Urine Protein Negative (Negative) 04/09/25 20:05 Urine Glucose (UA) Negative (Negative) 04/09/25 20:05 Urine Ketones Negative (Negative) 04/09/25 20:05 Urine Blood 1+ (Negative) H 04/09/25 20:05 Urine Nitrite Positive (Negative) A 04/09/25 20:05 Urine Bilirubin Negative (Negative) 04/09/25 20:05 Urine Urobilinogen Negative (Negative) 04/09/25 20:05 Ur Leukocyte Esterase 2+ (Negative) H 04/09/25 20:05 Urine WBC (Auto) 6-10 /hpf (0-5) H 04/09/25 20:05 Urine RBC (Auto) 0-2 /hpf (0-2) 04/09/25 20:05 U Hyaline Cast (Auto) 0-2 /lpf (0-2) 04/09/25 20:05 U Epithel Cells (Auto) 0-2 /hpf (0-2) 04/09/25 20:05 Urine Bacteria (Auto) 4+ (None Seen) H 04/09/25 20:05 Urine Comment 04/09/25 20:05 Adenovirus (PCR) Not Detected (NotDetected) 04/09/25 18:00 B. pertussis DNA (PCR) Not Detected (NotDetected) 04/09/25 18:00 B.parapertussis DNA PCR Not Detected (NotDetected) 04/09/25 18:00 C. pneumoniae DNA (PCR) Not Detected (NotDetected) 04/09/25 18:00 Coronavirus OC43 (PCR) Not Detected (NotDetected) 04/09/25 18:00 Coronavirus HKU1 (PCR) Not Detected (NotDetected) 04/09/25 18:00 Coronavirus 229E (PCR) Not Detected (NotDetected) 04/09/25 18:00 SARS-CoV-2 (PCR) Not Detected (NotDetected) 04/09/25 18:00 Coronavirus NL63 (PCR) Not Detected (NotDetected) 04/09/25 18:00 Human Metapneumovir PCR Not Detected (NotDetected) 04/09/25 18:00 Influenza Type A (PCR) Not Detected (NotDetected) 04/09/25 18:00 Influenza Type B (PCR) Not Detected (NotDetected) 04/09/25 18:00 M. pneumoniae (PCR) Not Detected (NotDetected) 04/09/25 18:00 Parainfluenza 1 (PCR) Not Detected (NotDetected) 04/09/25 18:00 Parainfluenza 2 (PCR) Not Detected (NotDetected) 04/09/25 18:00 Parainfluenza 3 (PCR) Not Detected (NotDetected) 04/09/25 18:00 Parainfluenza 4 (PCR) Not Detected (NotDetected) 04/09/25 18:00 RSV (PCR) Not Detected (NotDetected) 04/09/25 18:00 Entero/Rhino (PCR) Not Detected (NotDetected) 04/09/25 18:00 Impressions Renal Ultrasound 04/09/25 20:41 Exam(s): US RENAL EXAM: US Retroperitoneal Complete, Renal CLINICAL HISTORY: Reason for exam: UTI, , fevers. OTHER: Other Notes: UTI, fever. Pt is 22 weeks . Rt kidney: L=11.6cm. Mild hydronephrosis seen. No definite stones detected. Lt kidney: L=11.8cm. Slight dilatation of collecting system. .6cm ?stone in MP and .3cm ?stone in UP. A few other small echogenic areas throughout kidney. Bladder: Mild debris seen within, otherwise unremarkable. Jets not detected. heart lqjs=[id number]. TECHNIQUE: Real-time complete ultrasound of the retroperitoneum with image documentation. COMPARISON: None FINDINGS: Right kidney: Mild right hydronephrosis. No stone identified. Right kidney measures 11.6 cm in length. Left kidney: Multiple left renal stones, measuring up to 6 mm. Minimal hydronephrosis. Left kidney measures 11.8 cm in length. Bladder: Small amount of debris in the bladder, nonspecific. Please correlate with urinalysis. Bilateral ureteral jets not seen on this exam. Other findings: Intrauterine noted with heart rate of 152 beats per minute. IMPRESSION: 1. Mild right hydronephrosis. No stone identified. 2. Multiple left renal stones, measuring up to 6 mm. Minimal hydronephrosis. 3. Small amount of debris in the bladder, nonspecific. Please correlate with urinalysis. 4. Intrauterine noted with heart rate of 152 beats per minute. Electronically signed by: Lonny Brito M.D. 04/09/25 22:23 PM PG Care Time/CCT Total # of Minutes Spent Total Time Spent with Patient: Total time spent is greater than 50% in coordination of care (as documented) at patient's floor/unit and/or counseling patient: Coding Level of Care Code 42389 OFFICE CONSULT LVL 2/20M Diagnoses Pyelonephritis N12 UTI due to extended-spectrum beta lactamase (ESBL) producing Escherichia coli N39.0; B96.29; Z16.12 22 weeks gestation of Z3A.22
[2025-04-10] MEDS: FAMOTIDINE 20MG IV PUSH 20 MG/5 ML SYR IV SCH (08:20)
--- NOTE | 2025-04-10 09:36 | Hospitalist Progress Note ---
Date of Service April 10, 2025 Assessment & Plan (1) Pyelonephritis: (2) UTI due to extended-spectrum beta lactamase (ESBL) producing Escherichia coli: (3) 22 weeks gestation of : (4) Hydronephrosis of right kidney: Plan Norma is a 30yo F with PMH including hepatic steatosis, Celiac's disease, hypothyroidism, hypertension, UTI w/ ESBL E. coli x 2, and gestational diabetes. She presented to the ER on 12 midnight after 2 days of fatigue, nausea, fevers/chills, and generalized weakness. She is presently 22 weeks gestation with her first . She was advised to go to the ER after calling her OB with a temp of 101F. In the ER, patient was given IV fluids and antibiotics. Abdominal US showed R hydronephrosis, multiple L kidney stones, and reassuring heart rate. Patient is admitted for treatment of complicated UTI. #Pyelo / hydronephrosis / ESBL UTI - Generalized flu-like sx for 2 days, no urinary sx or flank pain. Did meet criteria for sepsis on arrival with 2 SIRS criteria (HR >90bpm and WBC>65405) and likely source of infection. Now AFVSS after abx and IV fluids - 2 recent UTIs w/ cultures growing ESBL E. coli (01/06 and 02/24). Treated with appropriate abx and sx did resolve, but given identical cultures (same organism and susceptibilities), cannot rule out treatment failure rather than recurrence. - Urine collected at admission for culture; results pending. Plan for follow-up Ucx to confirm clearance. Consider chronic suppressive therapy if not - Given 1x ceftriaxone in ER; past cultures do note resistance. Switched to Zosyn on admission, s/p 2 doses of 4.5mg. Per pharmacy recs, will continue pt on ertapenem 1g IV daily, pending culture results - PRN Tylenol, IV fluids (s/p 3L nss, currently running nss + KCl at 100 ml/hr) # - at 22 wga, complicated by chronic HTN and DM - Followed by [facility]; OB consult placed, appreciate additional recs - PRN Pepcid for nausea #A1GDM - GTT on 03/06 with: High fasting of 100; High 1 Hr of 185; Within rage (70-152) at 2 Hr 117 - Currently managed with diet and exercise; pt has glucometer to check levels at home - No meds for glycemic control during admission #HTN - Nifedipine recently increased from 30 to 60 mg daily. Pt reports that she was also told to take aspirin at bedtime - Meds not continued at admission. BP currently well-controlled, can add back nifedipine or labetalol if that changes #Hypothyroidism - continue levothyroxine VTE ppx: Diet: gluten-free Dispo: MICU --> home, self Admission and Anticipated Discharge Date Admission Date: April 10, 2025 Subjective NAEO. Patient seen and examined at bedside. Reports feeling much improved since admission. She has been afebrile overnight, though she did experience chills and required Tylenol around 4am. She did well with breakfast and denies any nausea or vomiting. Denies JAMES, dizziness, SOB, CP, abd pain, dysuria, muscle or joint aches. She is concerned because this is her 3rd UTI this , despite appropriate treatment. She has no local support system, and her is [place]. She did ask him to get an urgent flight home, but is questioning that request now that she is improving. No new questions or complaints for the team today. Review of Systems Review of Systems: As per HPI. Physical Exam Physical Exam: Gen: NAD, WD/WN HEENT: NCAT, normal conjunctiva, MMM, no LAD or thyromegaly CV: RRR, no m/r/g, S1/S2 normal, no LE edema Resp: CTAB, symmetrical chest rise, breathing non-labored Abd: Soft, appropriately gravid for 22 wga, normoactive BS, no SP or CVA tenderness Skin: Warm, dry, well-perfused, no rashes Results & Data Results & Data Vital Signs (Past 12 Hours) Vital Signs Temp Pulse Pulse Resp BP Pulse Ox O2 Del Method 04/10/25 08:00 36.6 C 102 H 16 112/90 98 Room Air 04/10/25 02:30 107 H 04/10/25 02:30 36.8 C 113 H 16 143/93 H 98 Room Air 04/10/25 02:29 18 96 04/10/25 02:01 113 H 18 129/87 96 Room Air 04/09/25 23:18 107 H Resident Supervision Co-Signing Physician Notes I personally examined the patient and verified fierro points of history and exam, discussed case, and agree with decision making and plan documented by Dr. Hernandez. Patient is 30-year-old 22w3d female with past medical history pertinent for hypothyroidism, hypertension, hepatic steatosis, celiac disease, and ESBL UTI on admission for pyelonephritis. Patient currently on ertapenem. Urine culture sensitivities pending. Patient appears comfortable, lungs clear b/l to auscultation, regular rate and rhythm, gravid abdomen with bowel sounds and no tenderness, no acute distress. Monitoring BP closely to maintain <140/90 mmHg, restart antihypertensives. Resident Activity Tracking Resident Involvement: Resident Care Provided Care Provided: Adult Hospital Medicine
[2025-04-10] MEDS: ERTAPENEM 1000MG 1,000 MG/10 ML SYR IV SCH (10:16)
--- NOTE | 2025-04-10 12:08 | Electrocardiogram Report ---
Test Reason : Blood Pressure : */* mmHG Vent. Rate : 109 BPM Atrial Rate : 109 BPM P-R Int : 140 ms QRS Dur : 68 ms QT Int : 302 ms P-R-T Axes : 19 0 10 degrees QTcB Int : 406 ms Sinus tachycardia Otherwise normal ECG When compared with ECG of 03-Aug-2023 10:47, No significant change was found Confirmed by Sukumar Forrester ([id number]) on 04/10/2025 12:08:19 PM Referred By: REFERRED SELF Confirmed By: Sukumar Forrester
--- NOTE | 2025-04-10 13:56 | XCELERA ---
[id number]
[2025-04-10] MEDS: LABETALOL HCL 100 MG TAB PO SCH (17:30)
[2025-04-11] MEDS: FAMOTIDINE 20 MG TAB PO PRN (05:30)
[2025-04-11 06:18] LABS: Hematocrit (blood only) 30.6 % (37.0-47.0); Hemoglobin 10.2 g/dL (12.0-16.0); Immature Granulocytes # (auto) 0.09 K/uL (0.01-0.20); Immature Granulocytes % (auto) 0.6 %; Mean Corpuscular Hemoglobin 29.3 pg (25.0-34.0); Mean Corpuscular Volume 87.9 fL (80.0-100.0); Platelet Count 271 K/uL (130-400); RDW Standard Deviation 47.9 fL (36.4-46.3); Red Blood Count 3.48 M/uL (4.20-5.40); White Blood Count 14.43 K/ul (4.8-10.8)
[2025-04-11 06:39] LABS: Alanine Aminotransferase 16.0 U/L (7-52); Albumin Globulin Ratio 0.9 (0.9-2); Albumin Level 3.2 gm/dl (3.4-5.0); Alkaline Phosphatase 66.0 U/L (34-104); Anion Gap 8.0 (3-11); Bilirubin,Total 0.2 mg/dl (0.2-1.0); Blood Urea Nitrogen 10.0 mg/dl (6-23); Calcium 9.2 mg/dl (8.6-10.3); Carbon Dioxide 20.0 mmol/L (21-32); Chloride 107.0 mmol/L (98-107); Creatinine Clr Calc Pharmacy 111.3 ml/min; Globulin 3.6 gm/dl (2.5-4.0); Glucose 86.0 mg/dl (70-99(Fasting)); Potassium 3.6 mmol/L (3.5-5.1); Sodium 135.0 mmol/L (136-145); Total Protein 6.8 gm/dl (6.0-8.3)
[2025-04-11] MEDS ORDERED: ONDANSETRON INJ 2 MG/ML 2 ML VIAL IV ONE (09:49)
--- NOTE | 2025-04-11 11:41 | Hospitalist Progress Note ---
Date of Service April 11, 2025 Assessment & Plan (1) Pyelonephritis: (2) UTI due to extended-spectrum beta lactamase (ESBL) producing Escherichia coli: (3) 22 weeks gestation of : (4) Hydronephrosis of right kidney: Plan Norma is a 30yo F with PMH including hepatic steatosis, Celiac's disease, hypothyroidism, hypertension, UTI w/ ESBL E. coli x 2, and gestational diabetes. She presented to the ER on 04/10 midnight after 2 days of fatigue, nausea, fevers/chills, and generalized weakness. She is presently 22 weeks gestation with her first . She was advised to go to the ER after calling her OB with a temp of 101F. In the ER, patient was given IV fluids and antibiotics. Abdominal US showed R hydronephrosis, multiple L kidney stones, and reassuring heart rate. Patient is admitted for treatment of complicated UTI. #Pyelo / hydronephrosis / ESBL UTI - Generalized flu-like sx for 2 days, no urinary sx or flank pain. Did meet criteria for sepsis on arrival with 2 SIRS criteria (HR >90bpm and WBC>35805) and likely source of infection. Now AFVSS after abx and IV fluids - 2 recent UTIs w/ cultures growing ESBL E. coli (01/06 and 02/24). Treated with appropriate abx and sx did resolve, but given identical cultures (same organism and susceptibilities), cannot rule out treatment failure rather than recurrence. Ucx this admission again grew ESBL E. coli with the same sensitivities. - Given 1x ceftriaxone in ER; past cultures do note resistance. Switched to Zosyn on admission, s/p 2 doses of 4.5mg. Per pharmacy recs, patient was then switched to ertapenem 1g IV daily; has received 2 doses now - ID consulted: rec continuing ertapenem while inpatient --> finishing course of abx on 04/16 with Bactrim after discharge --> continuing for remainder of with Macrobid for suppressive therapy - Will schedule Tylenol (1g q6h), IV fluids (s/p 3L nss + 1L nss/KCl) - Plan for third dose of Ertapenem tomorrow AM, then discharge later in the day. 4 days of Bactrim DS BID. Then f/u urine culture and start macrobid on 04/16 # - at 22 wga, complicated by chronic HTN and DM - Followed by [facility]; OB consult placed, appreciate additional recs - PRN Pepcid for nausea #A1GDM - GTT on 03/06 with: High fasting of 100; High 1 Hr of 185; Within rage (70-152) at 2 Hr 117 - Currently managed with diet and exercise; pt has glucometer to check levels at home - No meds for glycemic control during admission #HTN - Nifedipine recently increased from 30 to 60 mg daily. Pt reports that she was also told to take aspirin at bedtime - Meds not continued at admission. BP currently well-controlled on labetalol 100mg qAM; can resume nifedipine after discharge #Hypothyroidism - continue levothyroxine VTE ppx: ambulatory Diet: gluten-free Dispo: MICU --> home, self Admission and Anticipated Discharge Date Admission Date: April 10, 2025 Supervising Physician Co-Signing Physician Notes Attending attestation Pt seen and examined in concert with Dr. Hernandez. In agreement with the documented findings as noted in the resident documentation with any exceptions or additions as noted here. Reports return of subjective fever and chills overnight, again improved with APAP use. Anxious regarding course of care and recurrence of infection in the setting of recent treatments. VS as noted. On examination, S1/S2 nl RRR no MCG. CTAB. Abd NT/ND BS+ve Pyelonephritis w/ ESBL E. coli - ID, obstetrics consult appreciated - continue ertapenem with transition to Bactrim DS as recommended to complete 7 day course with UCx to confirm resolution and transition to suppressive therapy as noted. Hypertension in - continue monitoring and labetalol as ordered. Else see resident documentation as noted. Subjective Did have elevated temp and need Tylenol again overnight. Seen and examined at bedside today with attending. She is very anxious about her abnormal lab values and the reason behind her continued/recurrent UTI. Mentions her is on a flight home today. Denies current fevers or chills. Denies JAMES, dizziness, CP, SOB, abd pain, n/v/d, dysuria, or numbness/tingling Review of Systems Review of Systems: As per HPI. Physical Exam Physical Exam: Gen: NAD, WD/WN HEENT: NCAT, normal conjunctiva, MMM, no LAD or thyromegaly CV: RRR, no m/r/g, S1/S2 normal, no LE edema Resp: CTAB, symmetrical chest rise, breathing non-labored Abd: Soft, appropriately gravid for 22 wga, normoactive BS, no SP or CVA tenderness Skin: Warm, dry, well-perfused, no rashes Results & Data Results & Data Vital Signs (Past 12 Hours) Vital Signs Temp Pulse Pulse Resp BP Pulse Ox Pulse Ox 04/11/25 08:00 83 04/11/25 08:00 99 04/11/25 07:22 36.6 C 86 17 121/80 97 04/11/25 03:26 36.8 C 92 H 20 133/86 04/11/25 00:34 82 O2 Del Method O2 Del Method 04/11/25 08:00 04/11/25 08:00 Room Air 04/11/25 07:22 Room Air 04/11/25 03:26 04/11/25 00:34 Resident Activity Tracking Resident Involvement: Resident Care Provided Care Provided: Adult Hospital Medicine
--- NOTE | 2025-04-11 12:38 | Infectious Disease Consult ---
Date of Consultation April 11, 2025 Assessment & Plan (1) Pyelonephritis: (2) UTI due to extended-spectrum beta lactamase (ESBL) producing Escherichia coli: (3) Hydronephrosis of right kidney: Plan Problems: #ESBL E coli UTI #L sided nephrolithiasis # Micro: 04/09 UCx: ESBL E coli (S amikacin, erta, shira, nitrofurantoin, TMP/SMX) 02/24 UCx: ESBL E coli (S amikacin, erta, shira, nitrofurantoin, TMP/SMX) 01/06 UCx: ESBL E coli (S amikacin, erta, shira, nitrofurantoin, TMP/SMX) Abx: Ertapenem 04/10 - present Zosyn 04/10 Ceftriaxone 04/09 30 yo at 22w4d, nephrolithiasis, recent ESBL E coli UTIs, hypothyroidism, HTN who presented on 04/09 with 2 days of fatigue, nausea, generalized weakness, found to have recurrent ESBL E coli UTI. Also reported a temperature at home of 101, and was advised by her OB to present for evaluation. On presentation, T 37.9, HR 133, BP 153/92. Labs showed WBC 18.93, UA with 6-10 WBCs. RVP negative. Renal US with mild R hydronephrosis without stones, multiple L renal stones measuring up to 6 mm with minimal hydronephrosis, and small amount of debris in bladder. She was given a dose of ceftriaxone, then switched to Zosyn, then to ertapenem. OBGYN consulted and recommending daily antibiotic prophylaxis for remainder of her due to recurrent UTIs. Per notes, pt felt much improved 04/10. She denied dysuria. Leukocytosis downtrended to 14.43 on 04/11. Of note, she had a 01/06/25 UCx which grew ESBL E coli, treated with Macrobid 100 mg BID x 5 days. Again had UCx on 02/24 positive for ESBL E coli, treated with Bactrim 1 DS tab BID x 3 days. Discussion: She received appropriate antibiotics for the prior positive UCx on 01/06 and 02/24 for an uncomplicated cystitis. However, now with UCx again growing ESBL E coli in the context of fever, leukocytosis, and US kidneys showing mild R hydronephrosis, and multiple L renal stones--does raise concern for more complicated UTI/pyelonephritis. Therefore, agree with ertapenem at this time, with plan for longer course of antibiotics. Recommendations: - Can continue ertapenem 1 g IV q24h while inpatient, and on discharge switch to TMP/SMX 1 DS tab PO BID through 04/16 to complete a 7 day course for pyelonephritis - After completion of the above course, can transition to nitrofurantoin 100 mg PO nightly for UTI prevention during her (Alternatively, could do TMP/SMX 1/2 SS tab daily for prophylaxis, although per OBGYN an alternative is preferred in the third trimester unless there are no other options) Will sign off Consultation Information This patient recommendation is based on a telemedicine consult request which was completed asynchronously through chart review and information provided by the primary physician. The patient was not seen or examined today. The evaluation is consultative in nature and all patient care and treatment decisions can either be accepted or rejected by the patient's primary hospital-based treating physician using their own independent medical judgment for their patient. [employer] contact information: Please call [facility] . (Phone Number For Physician Use Only) An e-consult was done due to lack of telepresenter availability. Time Spent Reviewing Chart: 31+ minutes History of Present Illness Reason for Consultation: ESBL E coli Attending Physician: Yaniv Griffin MD History of Present Illness 30 yo at 22w4d, nephrolithiasis, recent ESBL E coli UTIs, hypothyroidism, HTN who presented on 04/09 with 2 days of fatigue, nausea, generalized weakness. Also reported a temperature at home of 101, and was advised by her OB to present for evaluation. On presentation, T 37.9, HR 133, BP 153/92. Labs showed WBC 18.93, UA with 6-10 WBCs. RVP negative. Renal US with mild R hydronephrosis without stones, multiple L renal stones measuring up to 6 mm with minimal hydronephrosis, and small amount of debris in bladder. She was given a dose of ceftriaxone, then switched to Zosyn, then to ertapenem. OBGYN consulted and recommending daily antibiotic prophylaxis for remainder of her due to recurrent UTIs. Per notes, pt felt much improved 04/10. She denied dysuria. Leukocytosis downtrended to 14.43 on 04/11. Allergies Allergy/AdvReac Type Severity Reaction Status Date / Time gluten Allergy Unknown celiac Verified 04/09/25 20:40 disease contact metal agent AdvReac Unknown "ARTIFICIAL Verified 04/10/25 00:04 JEWELRY" SPOTS ON SKIN Home Medications Medication Instructions Recorded Confirmed Type acetone (urine) test (Ketone Urine #50 ea 03/10/25 04/09/25 Rx Test strips) blood sugar diagnostic (True #150 ea 03/10/25 04/09/25 Rx Metrix Glucose Test Strip) blood-glucose meter (True Metrix #1 ea 03/10/25 04/09/25 Rx Glucose Meter) lancets 28 gauge (TRUEplus Lancets) #150 ea 03/13/25 04/09/25 Rx aspirin 81 mg tablet,delayed 81 mg PO HS 04/09/25 04/09/25 History release levothyroxine 75 mcg tablet 75 mcg PO DAILYBB 04/09/25 04/09/25 History nifedipine 30 mg tablet,extended 60 mg PO HS 04/09/25 04/09/25 History release 24 hr vit no.95-ferrous 1 tab PO HS 04/09/25 04/09/25 History fumarate 28 mg-folic acid 800 mcg tablet () Patient History Medical History Chicken pox Diarrhea Acid reflux Celiac disease Hypothyroid Pre-conception counseling Irregular menses Hypertension Desire for History of hypothyroidism Acid reflux History of kidney stones Borderline high cholesterol Borderline high blood pressure History of celiac disease (2019) Surgical History History of endoscopy History of colonoscopy Family History Denies family history of Ovarian cancer Breast cancer Colorectal cancer Social History Smoking Status: Unknown if ever smoked Do You Dip or Chew Tobacco: No; Hx Alcohol Use: No Hx Substance Use: No Preferred Language: Czech Communication Ability: Effective Can Handler Required: No Beliefs That Will Affect Care: None marital status: marital status details: Jose Luis Rashid (36) Current Living Situation: Alone Current Living Situation Comment: apartment alone- in [place]. No pets. current occupational status: employed current occupation: Post-doc at [employer] Other Information That Helps Us Care for You: No Feels Safe at Home: Yes Safety Concerns: Feels Safe At This Time Assistive Devices: None Results & Data Vital Signs (Past 12 Hours) Vital Signs Temp Pulse Pulse Resp BP Pulse Ox Pulse Ox 04/11/25 12:01 36.7 C 85 119/82 98 04/11/25 08:00 83 04/11/25 08:00 99 04/11/25 07:22 36.6 C 86 17 121/80 97 04/11/25 03:26 36.8 C 92 H 20 133/86 04/11/25 00:34 82 O2 Del Method O2 Del Method 04/11/25 12:01 Room Air 04/11/25 08:00 04/11/25 08:00 Room Air 04/11/25 07:22 Room Air 04/11/25 03:26 04/11/25 00:34
[2025-04-11] MEDS: ACETAMINOPHEN 325 MG TAB PO SCH (19:55)
[2025-04-12 01:13] LABS: Cdiff Toxin B Gene (2yr or >) Negative Cdiff Gene (Neg)
[2025-04-12 03:45] VITALS: RESP 17
--- NOTE | 2025-04-12 06:43 | Discharge Summary ---
Date of Service April 12, 2025 Admission HPI Per Admitting Provider The patient is a 30-year-old female with a past medical history including hepatic steatosis, hypothyroidism, hypertension, and ESBL E. coli UTI x 2. She presents to the emergency department with 2 days of fatigue, nausea, generalized weakness. She is presently 22 weeks gestation with her first . She reports that her dosing of nifedipine was increased from 30 to 60 mg recently. She reports that she was also told to take aspirin at bedtime cut back on strain . Her symptoms began with generalized bodyaches and headache 2 days ago, and since then has developed more progressive fatigue. Tylenol is only minimally improving her symptoms, she called her OB doctor, who advised she come to the ED for assessment after reporting temperature of 101 F. In the emergency department she had laboratory performed showing potassium 3.2, platelets 113, sodium 133, albumin 3.3, negative BioFire testing, and urinalysis suggestive of urinary tract infection. CT scan of abdomen pelvis showed mild ri ght hydronephrosis, left renal stone, bladder debris, and intrauterine heart heart rate 152. In the ED she received the following: Normal saline 1 L fluid bolus and 2, then maintenance at 125 mL/h, famotidine 20 mg IV, Tylenol 1 g IV, and ceftriaxone 2 g IV. She was then referred for evaluation for admission to the hospitalist service. Principal Diagnosis ESBL E. coli UTI, pyelonephritis Discharge Exam Gen: NAD, WD/WN HEENT: NCAT, normal conjunctiva, MMM, no LAD or thyromegaly CV: RRR, no m/r/g, S1/S2 normal, no LE edema Resp: CTAB, symmetrical chest rise, breathing non-labored Abd: Soft, appropriately gravid for 22 wga, normoactive BS, no SP or CVA tenderness MSK: Full ROM, normal str, no gross deformities on inspection Skin: Warm, dry, well-perfused, no rashes Neuro: AOx3, CN II-XII grossly intact, no focal deficits Discharge Data Allergies Allergy/AdvReac Type Severity Reaction Status Date / Time gluten Allergy Unknown celiac Verified 04/09/25 20:40 disease contact metal agent AdvReac Unknown "ARTIFICIAL Verified 04/10/25 00:04 JEWELRY" SPOTS ON SKIN Consultations 04/09/25 23:40 ED Decision to Admit Stat 04/10/25 00:11 Consult Obstetrics Routine 04/11/25 10:18 Consult Infectious Diseases Routine Ordered Studies 04/09/25 20:41 US renal/blad retro comp Stat Hospital Course (1) Pyelonephritis: (2) UTI due to extended-spectrum beta lactamase (ESBL) producing Escherichia coli: (3) 22 weeks gestation of : (4) Hydronephrosis of right kidney: Jeanie Green is a 30yo F with PMH including hepatic steatosis, Celiac's disease, hypothyroidism, hypertension, UTI w/ ESBL E. coli x 2, and gestational diabetes. She presented to the ER on 04/10 midnight after 2 days of fatigue, nausea, fevers/chills, and generalized weakness. She is presently 22 weeks gestation with her first . She was advised to go to the ER after calling her OB with a temp of 101F. In the ER, patient was given IV fluids and antibiotics. Abdominal US showed R hydronephrosis, multiple L kidney stones, and reassuring heart rate. Patient was admitted for treatment of complicated UTI. She was deemed safe for discharge when your symptoms resolved, your labs stabilized, and a treatment plan was decided. Patient should follow up with your PCP and OB. We also recommend reducing work hours, at least until PCP appt. #Pyelo / hydronephrosis / ESBL UTI - Generalized flu-like sx for 2 days, no urinary sx or flank pain. Did meet criteria for sepsis on arrival with 2 SIRS criteria (HR >90bpm and WBC>50120) and likely source of infection. Now AFVSS after abx and IV fluids - 2 recent UTIs w/ cultures growing ESBL E. coli (01/06 and 02/24). Treated with appropriate abx and sx did resolve, but given identical cultures (same organism and susceptibilities), cannot rule out treatment failure rather than recurrence. Ucx this admission again grew ESBL E. coli with the same sensitivities. - Given 1x ceftriaxone in ER; past cultures do note resistance. Switched to Zosyn on admission, s/p 2 doses of 4.5mg. Per pharmacy recs, patient was then switched to ertapenem 1g IV daily; has received 2 doses now - ID consulted: rec continuing ertapenem while inpatient --> finishing course of abx on 04/16 with Bactrim after discharge --> continuing for remainder of with Macrobid for suppressive therapy. - Had extensive discussion about likely outcomes and the concept of chronic suppressive therapy to patient and , who expressed understanding and acceptance of this plan - By day of discharge, WBC downtrending, nearly wnl at 11.47. Pt remains afebrile, has not required Tylenol. Received 3 doses of IV Ertapenem. - Rx sent for Bactrim DS to be taken BID from discharge until 04/16 PM. - On the following day, pt can get a follow-up urine culture (has been ordered) and should start on her course of Macrobid 100mg qHS # - at 22 wga, complicated by chronic HTN and DM - Followed by [facility]; OB consult placed, appreciate additional recs - Can continue PRN Pepcid for nausea after discharge - H/H stable by time of discharge #A1GDM - GTT on 03/06 with: High fasting of 100; High 1 Hr of 185; Within rage (70-152) at 2 Hr 117 - Currently managed with diet and exercise; pt has glucometer to check levels at home - No meds for glycemic control during admission. Continue lifestyle management after discharge #HTN - Nifedipine recently increased from 30 to 60 mg daily. Pt reports that she was also told to take aspirin at bedtime - Meds not continued at admission. BP currently well-controlled on labetalol 100mg qAM - Can resume aspirin after discharge. Can resume 60mg nifedipine daily, but as single AM dose or as split 30mg BID #Hypothyroidism - continue levothyroxine VTE ppx: ambulatory Diet: gluten-free Dispo: MICU --> home, self Total Time Total Time Spent Total Time Spent (In Minutes): See attending documentation Discharge Plan Discharge Items Patient Disposition: Home - Self-Care Reason For Visit: MDR UTI, SINUS TACHYCARDIA, 22 WEEKS GESTATION Discharge Diagnosis: ESBL E. coli UTI, pyelonephritis Condition on Discharge: Fair Activity: Per Instructions section Non-emergency contact: Primary Care Provider and Purification Operator Call non-emergency contact if: you have any medication questions, your symptoms worsen, your pain is not controlled and you have a fever Follow-up/Referrals: Melissa Beck MD [Primary Care Provider] - 04/15/25 11:00 am (Hospital follow up appt scheduled for MondayApr 15 at 11:00 am) Diet: Gluten Free Ambulatory Orders: Urine Culture Patient (Routine) Timeframe: [id number] Location: Determined by Patient Ordered By: Rosa Lackey Attending Provider Instructions: You came to the hospital with fevers, chills, nausea, and weakness. You were admitted for UTI, especially concerning given your history of urine cultures growing ESBL E. coli. Ultrasound of your abdomen confirmed reassuring heart rates, and did show mild hydronephrosis of the right kidney and several small stones in the left kidney. You were treated with IV antibiotics (erta penem) until your new urine culture results finalized. Our Infectious Disease team did assess you and provide recommendations for management after discharge. You were deemed safe for discharge when your symptoms resolved, your labs stabilized, and a treatment plan was decided. Please follow up with your PCP and OB. We recommend reducing your work hours, at least until finishing your course of Bactrim. Medications Your medication list has been reviewed and reconciled. An updated list is included with your discharge paperwork; please review this list closely and make note of any changes. We sent a prescription for Bactrim DS (800mg sulfamethoxazole-160mg trimethoprim) to your pharmacy.Take one tablet twice daily for 4 more days. Your last dose will be the evening of 04/16. This will complete the "treatment" portion of your antibiotics. We also sent a prescription for Macrobid (100mg nitrofurantoin). Take one capsule daily at bedtime starting on 04/17. This will be the "suppressive" phase of your antibiotics, which will continue until the end of your . You may continue to have GI distress while on antibiotics, though improvement in these symptoms is expected after switching to Macrobid. Symptoms may improve with probiotics, e.g. supplements or yogurt. During your admission, you were given labetalol for blood pressure control. After discharge, you may resume Nifedipine 60mg daily; this can be taken as two 30mg tablets in the morning or one in the morning and one at night. Continue your aspirin, levothyroxine, and vitamins You can take up to 1g Tylenol (acetaminophen) every 6 hours as needed for pain or fever. You may take 10mg Pepcid (famotidine) twice daily as needed for nausea/reflux. Continue to manage your Celiac's disease and Gestational Diabetes with appropriate diet, and do regularly check your fingerstick blood sugar. Take your medications as instructed; do not skip a dose. Make sure all of your doctors know every medicine you are taking (including [id number]-[id number] medici kenia, vitamins, and supplements). Call your PCP before taking any new medicines because some of these may interact with your current medications, or may make your symptoms worse. Follow-up appointments: Make a follow-up appointment with your PCP within the next week. It is very important that you follow up with them shortly after discharge from the hospital. Please bring a copy of this discharge summary with you so that your provider can review it and stay updated on your hospitalization and any changes in your care. An order has been placed for a follow-up urine culture, to be done soon after finishing the Bactrim and starting the Macrobid. If there are any issues with this order, please contact your PCP's office for an updated order. Continue your visits with [facility] as planned. Keep all your follow-up appointments as already scheduled. If you cannot make an appointment, notify your provider. Contact your PCP if your symptoms return. Call 911 or go to the ER if you experience any of the following: Fevers, flank pain, and/or urinary symptoms that do not improve with OTC medication Sudden, severe abdominal pain or nausea/vomiting that does not erik Severe chest pain, or chest pain that radiates (moves) to your jaw or arm Sudden, severe shortness of breath or difficulty breathing Thank you for allowing us to participate in your care. Pending Studies at Discharge: No Stand-Alone Forms: [facility], Work/School Release, Smoking Cessation Medications and DC Order Prescriptions: New famotidine 20 mg Tablet 20 mg PO Q12H PRN (Reason: gastric reflux) Qty: 30 0RF sulfamethoxazole-trimethoprim [Bactrim DS] 800-160 mg tablet 1 tab PO BID Qty: 9 0RF Rx Instructions: Take one tablet twice daily starting 12/13 PM and ending 04/16 PM nitrofurantoin monohyd/m-cryst [Macrobid] 100 mg capsule 100 mg PO DAILY Qty: 30 3RF Rx Instructions: Take one capsule before bed starting 04/17 Continued (DME) lancets [TRUEplus Lancets] 28 gauge misc See Rx Instructions .Route Qty: 150 5RF Rx Instructions: As directed to check blood sugars up to 4 times per day (DME) Ketone Urine Test Strip See Rx Instructions .MEDSUPPLY Qty: 50 6RF Rx Instructions: As directed to check ketones in urine once a day in the morning (DME) True Metrix Glucose Test Strip Strip See Rx Instructions .MEDSUPPLY Qty: 150 5RF Rx Instructions: As directed to check blood sugars 4 times a day (DME) blood-glucose meter [True Metrix Glucose Meter] Misc See Rx Instructions miscellaneous .MEDSUPPLY Qty: 1 0RF Rx Instructions: As directed levothyroxine 75 mcg tablet 75 mcg PO DAILYBB aspirin 81 mg Tablet,Delayed Release (Dr/Ec) 81 mg PO HS PNV no.95-ferrous fumarate-FA [] 28 mg iron- 800 mcg Tablet 1 tab PO HS nifedipine 30 mg tablet extended release 24hr 60 mg PO HS Discharge Orders: Discharge Order (Routine); Ordered 04/12/25 Ordered By: Rosa Hernandez Admission Data Admit Date/Time: 04/10/25 00:38 Attending Provider: Yaniv Griffin Admit Provider: Sinan Vidales Primary Care Provider: Melissa Beck Other Providers: Adelaida Head; Sinan Vidales Other Interventions: Discharge Summary Assessment (RN) Last Done: 04/12/25 13:06 Supervising Physician Co-Signing Physician Notes Attending attestation Pt seen and examined in concert with Dr. Hernandez. In agreement with the documented findings as noted in the resident documentation with any exceptions or additions as noted here. Reports no further subjective fever and chills without APAP use. Spouse in room providing additional history. VS as noted. On examination, S1/S2 nl RRR no MCG. CTAB. Abd NT/ND BS+ve Pyelonephritis w/ ESBL E. coli - ID, obstetrics consult appreciated - transitioned to Bactrim DS to complete 7 day course. At completion, recommend repeat UCx for evaluation for cure, as well as immediate transition to nitrofurantoin suppressive therapy and close follow up with obstetric and PCP team. Hypertension in - controlled on labetolol on admission. Can transition to nifedipine on discharge. Else see resident documentation as noted. Total attending physician time spent with this patient's care on the day of discharge: 42 minutes. Resident Activity Tracking Resident Involvement: Resident Care Provided Care Provided: Adult Hospital Medicine
[2025-04-12 07:25] VITALS: BP 136/95; PULSE 89; TEMP 98.1
[2025-04-12 07:56] LABS: Hematocrit (blood only) 29.1 % (37.0-47.0); Hemoglobin 9.7 g/dL (12.0-16.0); Immature Granulocytes # (auto) 0.10 K/uL (0.01-0.20); Immature Granulocytes % (auto) 0.9 %; Mean Corpuscular Hemoglobin 29.4 pg (25.0-34.0); Mean Corpuscular Volume 88.2 fL (80.0-100.0); Platelet Count 267 K/uL (130-400); RDW Standard Deviation 48.2 fL (36.4-46.3); Red Blood Count 3.30 M/uL (4.20-5.40); White Blood Count 11.47 K/ul (4.8-10.8)
[2025-04-12 08:09] LABS: Alanine Aminotransferase 15.0 U/L (7-52); Albumin Globulin Ratio 0.9 (0.9-2); Albumin Level 3.1 gm/dl (3.4-5.0); Alkaline Phosphatase 71.0 U/L (34-104); Anion Gap 8.0 (3-11); Bilirubin,Total 0.2 mg/dl (0.2-1.0); Blood Urea Nitrogen 11.0 mg/dl (6-23); Calcium 8.7 mg/dl (8.6-10.3); Carbon Dioxide 23.0 mmol/L (21-32); Chloride 107.0 mmol/L (98-107); Creatinine Clr Calc Pharmacy 128.6 ml/min; Globulin 3.5 gm/dl (2.5-4.0); Glucose 79.0 mg/dl (70-99(Fasting)); Potassium 3.6 mmol/L (3.5-5.1); Sodium 138.0 mmol/L (136-145); Total Protein 6.6 gm/dl (6.0-8.3)
[2025-04-12 13:09] VITALS: O2SAT 98
[2025-04-13] MEDS ORDERED: ERTAPENEM 1000MG 1,000 MG/10 ML SYR IV SCH (08:00)
== END 2025-04-12 14:04 | disposition home or self-care (01) | DRG 832 ==
LOC: ED 17:19 → 2E 04-10 00:38 → SUATTDRO 04-10 00:38 → 2E 04-10 02:29